=== PATIENT | female | born 1965 | race Caucasian/White ===

== ENCOUNTER 2021-12-20 10:20 | Emergency (ER) | payer OTHER, SELFPAY ==
[2021-12-20 10:24] VITALS: BP 129/80; PULSE 66; O2SAT 98; BMI 31.9
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
[2021-12-20] MEDS: cyclobenzaprine 10 mg Tablet PO (11:17)
[2021-12-20 11:29] LABS: Amphetamines Screen Urine Negative (Negative); Barbiturates Screen Urine Negative (Negative); Benzodiazepines Screen Urine Negative (Negative); Cocaine Screen Urine Negative (Negative); Opiate Screen Urine Negative (Negative); PCP Screen Urine Negative (Negative); THC Screen Urine Negative (Negative)
== END 2021-12-20 11:29 | disposition home or self-care (01) ==
PROVIDERS: Emergency Provider Nurse Practitioner Family; PCP Internal Medicine Infectious Disease
DX: S39.92XA Unspecified injury of lower back, initial encounter (principal); Y04.2XXA Assault by strike against or bumped into by another person, initial encounter
CPT/HCPCS: 80306; 99283

== ENCOUNTER 2025-03-20 14:51 | Outpatient (CLI) | payer OTHER, SELFPAY ==
--- NOTE | 2025-03-20 15:01 | XR_ITS ---
WS: [id number] Left knee, 3 views, 03/20/2025 Clinical Data: injury left knee Comparison: None. Findings: No fractures or dislocations are seen. The joint spaces are normal. The patella is intact. The soft tissues are unremarkable. XR/XR knee LT 3V* [id number] Impression: Negative left knee.
== END 2025-03-20 14:52 | disposition home or self-care (01) ==
PROVIDERS: PCP Family Medicine; Visit Provider Nurse Practitioner
DX: S89.92XA Unspecified injury of left lower leg, initial encounter (principal); X58.XXXA Exposure to other specified factors, initial encounter
CPT/HCPCS: 73562